=== PATIENT | female | born 1990 | race Caucasian/White ===

== ENCOUNTER 2016-12-20 13:15 | Emergency (ER) | payer MEDICAID ==
[2016-12-20 16:01] LABS: HCG SERUM NEGATIVE (NEGATIVE)
== END 2016-12-20 19:51 | disposition home or self-care (01) ==
LOC: D.ER 13:15
PROVIDERS: Emergency Medicine
DX: S80.01XA Contusion of right knee, initial encounter (principal); S00.83XA Contusion of other part of head, initial encounter; W01.0XXA Fall on same level from slipping, tripping and stumbling without subsequent striking against object, initial encounter; Y93.89 Activity, other specified; Y92.019 Unspecified place in single-family (private) house as the place of occurrence of the external cause; C71.9 Malignant neoplasm of brain, unspecified; F17.200 Nicotine dependence, unspecified, uncomplicated